=== PATIENT | female | born 1955 | race Caucasian/White ===

== ENCOUNTER 2019-04-08 14:59 | Observation (INO) ==
[2019-04-08] MEDS ORDERED: ACETAMINOPHEN 325 MG TABLET PO PRN (15:45)
[2019-04-08] MEDS ORDERED: ONDANSETRON 4 MG/2 ML VIAL IV PRN (15:45)
[2019-04-08] MEDS ORDERED: MORPHINE 4 MG/1 ML VIAL IV PRN (15:45)
[2019-04-08] MEDS ORDERED: GLUCAGON 1 MG VIAL IM PRN (15:45)
[2019-04-08] MEDS ORDERED: DEXTROSE 50% 25 GM/50 ML VIAL IV PRN (15:45)
[2019-04-08] MEDS ORDERED: INFLUENZA VIRUS VACCINE 0.5 ML SYRINGE IM ONE (16:41)
[2019-04-08] MEDS ORDERED: PNEUMOCOCCAL VACCINE (13 VALENT) 0.5 ML SYRINGE IM ONE (16:41)
[2019-04-08 16:45] LABS: Troponin I < 0.015 NG/ML (0.00-0.045)
[2019-04-08] MEDS: INSULIN LISPRO 100 UNIT/ML SUBCUT SCH ×2 (17:35→20:48)
[2019-04-08] MEDS: DOCUSATE SODIUM 100 MG CAPSULE PO SCH (20:48)
[2019-04-08] MEDS: ENOXAPARIN 40 MG/0.4 ML SYRINGE SUBCUT SCH (20:48)
[2019-04-09 04:41] LABS: Basophils # 0.1 10*3/uL (0.0-0.2); Basophils % 0.6 % (0.0-0.8); Eosinophils # 0.5 10*3/uL (0.0-0.87); Eosinophils % 5.5 % (0.00-10.9); Hematocrit 39.4 VOL% (35.7-47.0); Hemoglobin 13.3 GM/DL (12.0-16.0); Immature Granulocytes % 0.4 %; Immature Granulocytes Absolute 0.03 #; Lymphocytes # 3.4 10*3/uL (1.4-4.0); Lymphocytes % 41.8 % (21.3-54.2); Mean Corpuscular HGB Conc 33.8 GM/DL (32-36); Mean Corpuscular Volume 95.6 FL (87-102); Mean Platelet Volume 9.7 FL (9.6-12.0); Monocytes % 11.3 % (1.7-12.7); Neutrophils % 40.4 % (38.7-73.9); Platelet Count 289 T/CUMM (130-400); Red Blood Count 4.12 MC/CUMM (3.8-5.5); Red Cell Distribution Width 12.3 % (9.3-17.3); White Blood Count 8.2 T/CUMM (4-12)
[2019-04-09 05:21] LABS: Albumin 3.3 G/DL (3.4-5.0); Bilirubin,Total 1.8 MG/DL (0.2-1.0); Calcium 8.8 MG/DL (8.5-10.1); Osmolality,Calculated 285.1 MOS/KG (273-304); Total Protein 7.1 G/DL (6.4-8.3)
[2019-04-09 09:06] LABS: Troponin I < 0.015 NG/ML (0.00-0.045)
[2019-04-09] MEDS: hydroCHLOROthiazide 25 MG TABLET PO SCH (09:06)
[2019-04-09] MEDS: PANTOPRAZOLE 40 MG TABLET PO SCH (09:06)
[2019-04-09] MEDS: ENALAPRIL 10 MG TABLET PO SCH (09:06)
[2019-04-09] MEDS: DOCUSATE SODIUM 100 MG CAPSULE PO SCH ×2 (09:06→21:32)
[2019-04-09] MEDS ORDERED: NITROGLYCERIN SL 0.4 MG TABLET SL PRN (09:13)
[2019-04-09 09:46] LABS: Risk Ratio 3.93; VLDL CHOLESTEROL 28.6 MG/DL
[2019-04-09] MEDS ORDERED: diphenhydrAMINE CAP 25 MG CAPSULE PO ONE (09:57)
[2019-04-09] MEDS ORDERED: MAGNESIUM SULF RIDER 2 GM in PREMIX 1 EACH IV PRN (09:57)
[2019-04-09] MEDS ORDERED: POTASSIUM CHLORIDE RIDER 10 MEQ in PREMIX 1 EACH IV PRN (09:57)
[2019-04-09] MEDS ORDERED: DIAZEPAM 5 MG TABLET PO ONE (09:57)
[2019-04-09] MEDS: INSULIN LISPRO 100 UNIT/ML SUBCUT SCH ×4 (10:07→21:30)
[2019-04-09] MEDS: ASPIRIN EC 81 MG TABLET PO SCH (10:21)
[2019-04-09] MEDS: SODIUM CHLORIDE 0.45% 1,000 ML IV SCH ×2 (10:22→18:22)
[2019-04-09] MEDS ORDERED: HEPARIN/NACL 0.9% 2 UNITS/ML 1,000 ML IV ONE (11:00)
[2019-04-09] MEDS ORDERED: LIDOCAINE 1% 20 ML VIAL ONE (11:00)
[2019-04-09] MEDS ORDERED: fentaNYL 100 MCG/2 ML VIAL ONE (11:01)
[2019-04-09] MEDS ORDERED: MIDAZOLAM 2 MG/2 ML VIAL ONE (11:01)
[2019-04-09 11:08] LABS: Troponin I < 0.015 NG/ML (0.00-0.045)
[2019-04-09] MEDS ORDERED: ACETAMINOPHEN/CODEINE 300-30 MG TABLET PO PRN (12:03)
[2019-04-09 14:27] LABS: Troponin I < 0.015 NG/ML (0.00-0.045)
[2019-04-09] MEDS: ENOXAPARIN 40 MG/0.4 ML SYRINGE SUBCUT SCH (21:32)
[2019-04-10] MEDS: SODIUM CHLORIDE 0.45% 1,000 ML IV SCH ×2 (01:05→09:46)
[2019-04-10 04:49] LABS: Basophils % 0.6 % (0.0-0.8); Eosinophils # 0.3 10*3/uL (0.0-0.87); Eosinophils % 4.6 % (0.00-10.9); Hematocrit 38.2 VOL% (35.7-47.0); Hemoglobin 12.8 GM/DL (12.0-16.0); Immature Granulocytes % 0.4 %; Immature Granulocytes Absolute 0.03 #; Lymphocytes # 2.8 10*3/uL (1.4-4.0); Lymphocytes % 38.2 % (21.3-54.2); Mean Corpuscular HGB Conc 33.5 GM/DL (32-36); Mean Corpuscular Volume 95.5 FL (87-102); Monocytes % 9.6 % (1.7-12.7); Neutrophils % 46.6 % (38.7-73.9); Platelet Count 287 T/CUMM (130-400); Red Cell Distribution Width 12.5 % (9.3-17.3); White Blood Count 7.2 T/CUMM (4-12)
[2019-04-10 05:14] LABS: Calcium 8.7 MG/DL (8.5-10.1); Osmolality,Calculated 286.8 MOS/KG (273-304)
[2019-04-10] MEDS: INSULIN LISPRO 100 UNIT/ML SUBCUT SCH ×2 (09:43→12:22)
[2019-04-10] MEDS: ASPIRIN EC 81 MG TABLET PO SCH (09:44)
[2019-04-10] MEDS: ENALAPRIL 10 MG TABLET PO SCH (09:44)
[2019-04-10] MEDS: hydroCHLOROthiazide 25 MG TABLET PO SCH (09:44)
[2019-04-10] MEDS: DOCUSATE SODIUM 100 MG CAPSULE PO SCH (09:44)
[2019-04-10] MEDS: PANTOPRAZOLE 40 MG TABLET PO SCH (09:44)
[2019-04-10 12:30] VITALS: BP 127/77
== END 2019-04-10 14:00 | disposition home or self-care (01) ==
LOC: N.TELES
PROVIDERS: ADMIT Family Medicine; ATTEND Family Medicine
PROC: CLCCHCL (ICD-10-PCS; 2019-04-09 12:15)